=== PATIENT | female | born 1965 | race Asian ===

== ENCOUNTER → 2017-02-21 | Outpatient (CLI) | payer BC | END | disposition home or self-care (01) | LOC: C.PAPS 13:55 | PROVIDERS: ATTEND Obstetrics & Gynecology | DX: Z01.419 Encounter for gynecological examination (general) (routine) without abnormal findings (principal) ==

== ENCOUNTER → 2018-02-23 | Outpatient (CLI) | payer OTHER | END | disposition home or self-care (01) | LOC: C.PAPS 16:37 | PROVIDERS: ATTEND Obstetrics & Gynecology | DX: Z01.419 Encounter for gynecological examination (general) (routine) without abnormal findings (principal) ==

== ENCOUNTER → 2018-03-10 | Outpatient (CLI) | payer OTHER ==
--- NOTE | 2018-03-10 09:40 | DIAGNOSTIC IMAGING REPORT ---
ABDOMINAL ULTRASOUND COMPLETE HISTORY: CHOLESTEROLOSIS OF GALLBLADDER, OTHER SPECIFIED. COMPARISON: Abdominal ultrasound 08/04/2013. FINDINGS: Pancreas: The pancreas demonstrates a normal echotexture. Liver: Unremarkable. Gallbladder: No gallbladder wall thickening. No gallstones. A few gallbladder polyps are again noted with the largest measuring 5 mm. CBD: 5 mm. Kidneys: No hydronephrosis. Spleen: Normal in size measuring 8 cm in length. Aorta: Normal in caliber. IVC: Patent. IMPRESSION: 1. A few small gallbladder polyps measuring up to 5 mm. These are similar to the prior study. 2. No gallstones. Electronically signed by: Erwin Leal M.D. 03/10/2018 9:39 AM Dictated Date/Time: 03/10/2018 9:37 AM
--- NOTE | 2018-03-10 09:46 | DIAGNOSTIC IMAGING REPORT ---
THYROID ULTRASOUND HISTORY: Thyroid nodule. Follow-up. COMPARISON: Thyroid ultrasound 07/19/2013. FINDINGS: Right lobe: 5.9 x 2.0 x 1.4 cm. Slightly heterogeneous and isoechoic nodule within the interpolar region measuring 7 x 7 x 4 mm. This has increased in size by 1 mm. There is a similar-appearing 5 x 4 mm nodule in the interpolar region which is similar in size. Left lobe: 4.8 x 1.4 x 1.9 cm. There are 2 small cysts/nodules within the left thyroid lobe measuring up to 4 mm. Isthmus: 3 mm in thickness. No nodules. IMPRESSION: A few subcentimeter thyroid nodules which are not significantly changed. These do not meet sonographic criteria for biopsy. Electronically signed by: Erwin Leal M.D. 03/10/2018 9:45 AM Dictated Date/Time: 03/10/2018 9:41 AM
== END | disposition home or self-care (01) ==
LOC: C.ULTR 08:24
PROVIDERS: ATTEND Family Medicine
DX: E04.2 Nontoxic multinodular goiter (principal); K82.4 Cholesterolosis of gallbladder; R19.8 Other specified symptoms and signs involving the digestive system and abdomen

== ENCOUNTER → 2018-03-14 | Outpatient (CLI) | payer OTHER | END | disposition home or self-care (01) | LOC: C.LAB1850 10:01 | PROVIDERS: ATTEND Obstetrics & Gynecology | DX: N95.9 Unspecified menopausal and perimenopausal disorder (principal) ==

== ENCOUNTER 2019-09-13 08:18 | Observation (INO) ==
--- NOTE | 2019-09-02 15:11 | PAT Medication Instructions ---
Medication Instructions Date of Service September 02, 2019 Home Medications norethindrone-e.estradiol-iron [Mibelas 24 Fe] 1 tab PO DAILY azelastine 137 mcg (0.1 %) nasal spray aerosol 2 sprays INTRANASAL BID PRN ASK your prescriber and surgeon norethindrone-e.estradiol-iron [Mibelas 24 Fe] 1 tab PO DAILY Take morning of surgery With a small sip of water, OTHERWISE NOTHING TO EAT OR DRINK AFTER MIDNIGHT: azelastine 137 mcg (0.1 %) nasal spray aerosol 2 sprays INTRANASAL BID PRN (if needed) Other Notes If you have any questions please call us at [phone] or [phone] or [phone] or [phone]
--- NOTE | 2019-09-03 10:00 | Anesthesiology Consultation ---
Date of Service September 03, 2019 Assessment & Plan (1) Encounter for pre-operative examination: - Check test AM DOS Chart Review Chart Review: Pending: Refer to Additional Notes / Consult section (pending p reop testing (labs, EKG)) and Patient seen in Pre Admission Testing Teaching & Discussion Pre-Anesthesia Teaching/Discussion Notes: Instructed NPO after midnight before surgery,except medications with 15 cc of water. Medication instructions provided according to the PAT guidelines. History Surgery Operation Date: 09/13/19 09:50 Proposed Procedures p Laparoscopic Cholecystectomy - Ton Barkley MD, FACS Height/Weight Height: 5 ft 2 in Weight: 57.4 kg Allergies Allergy/AdvReac Type Severity Reaction Status Date / Time No Known Allergies Allergy Unknown Verified 08/31/19 12:17 Medications Home Medications Medication Instructions Recorded Confirmed Last Taken norethindrone-e.estradiol-iron 1 tab PO DAILY 06/28/19 08/31/19 06/28/19 [Mibelas 24 Fe] azelastine 137 mcg (0.1 %) nasal 2 sprays INTRANASAL BID PRN #1 ml 07/08/19 08/31/19 Unknown spray aerosol Past Medical History Medical History Gall bladder polyp PAC (premature atrial contraction) occasional palpitations Thyroid nodule under surveillance Exercise / Class Metabolic Activity II 4-5 Yardwork/Stairs/Walk up hill Past Family History Family History Family/Other Coronary heart disease Family/Other Diabetes Mother Hypertension Past Surgical History Surgical History History of colonoscopy History of esophagogastroduodenoscopy (EGD) Hx of appendectomy Past Anesthesia History No Hx of Anesthesia Complications and No Family Hx of Anesthesia Complications History of PONV No Hx of PONV and Hx of Motion Sickness (rare) Social History Smoking Status: Never smoker Do You Dip or Chew Tobacco: No Hx Alcohol Use: No Hx Substance Use: No substance use type: does not use Review of Systems Occasional palpitations/PAC's. Patient denies chest pain, shortness of breath, dyspnea on exertion, cough, wheezing. Physical Exam Vital Signs VITALS BP 117/78 P 72 TEMP 98.3 SP02 97%RA RESP 16 PHYSICAL Full neck and c-spine range of motion. Full TMJ range of motion. TMD 3 finger breaths Mallampati Score 3 Dentition: intact Lungs: clear throughout to auscultation Cardiac: regular rate and rhythm, no murmurs noted Spine: normal Carotid arteries: negative bruit Extremities: no edema Testing Electrocardiogram Date: 06/14/19 Findings: + NSR @ (63) Echocardiogram Date: 02/23/16 LVEF 65%. No RWMA. Mild TR. False tendon in the LV apex (normal variant).
[2019-09-03 13:36] LABS: Basophils # (auto) 0.09 K/uL (0-0.2); Basophils % (auto) 1.3 %; Eosinophils # (auto) 0.25 K/uL (0-0.5); Eosinophils % (auto) 3.7 %; Hematocrit (blood only) 38.6 % (37-47); Hemoglobin 12.7 g/dL (12.0-16.0); Immature Granulocytes # (auto) 0.01 K/uL (0.00-0.02); Immature Granulocytes % (auto) 0.1 %; Lymphocytes # (auto) 2.61 K/uL (1.2-3.4); Lymphocytes % (auto) 38.6 %; Mean Corpuscular Hemoglobin 31.1 pg (25-34); Mean Corpuscular Hgb Conc 32.9 g/dL (32-36); Mean Corpuscular Volume 94.4 fL (80-100); Mean Platelet Volume 9.6 fL (7.4-10.4); Monocytes # (auto) 0.43 K/uL (0.11-0.59); Monocytes % (auto) 6.4 %; Neutrophils # (auto) 3.37 K/uL (1.4-6.5); Neutrophils % (auto) 49.9 %; Platelet Count 372 K/uL (130-400); RDW Coefficient of Variation 13.7 % (11.5-14.5); RDW Standard Deviation 47.1 fL (36.4-46.3); Red Blood Count 4.09 M/uL (4.2-5.4); White Blood Count 6.76 K/uL (4.8-10.8)
[2019-09-03 13:46] LABS: BUN Creatinine Ratio 11.9 (10-20); Calcium 9.2 mg/dl (8.5-10.1); Creatinine Clr Calc Pharmacy 63.4 ml/min; Est GFR (African American) 94.6; Est GFR (Non-African American) 81.6; Potassium 3.7 mmol/L (3.5-5.1)
[~2019-09-13 08:18] MED LIST: LR 15ML/HR IV SCH; cefUROXime 1,500 MG in DEXTROSE 5% 100 ML IV SCH
[2019-09-13] MEDS ORDERED: MIDAZOLAM HCL 1 MG/ML 2ML VIAL ONE (09:16)
[2019-09-13] MEDS ORDERED: fentaNYL citrate 100 MCG/2 ML VIAL ONE ×2 (09:16→10:35)
[2019-09-13] MEDS ORDERED: HYDROmorphone INJ 2 MG/ML SYR/VIAL IV PRN (09:28)
[2019-09-13] MEDS ORDERED: ONDANSETRON INJ 2 MG/ML 2 ML VIAL IV PRN ×2 (09:28→11:04)
[2019-09-13] MEDS ORDERED: ATROPINE SULFATE 0.1 MG/ML 10ML SYR IV PRN (09:28)
[2019-09-13] MEDS ORDERED: ePHEDrine sulfate 50 MG/ML AMP IV PRN (09:28)
[2019-09-13] MEDS ORDERED: fentaNYL citrate 100 MCG/2 ML VIAL IV PRN (09:28)
[2019-09-13] MEDS ORDERED: BUPIVACAINE 0.5 % 5 MG/1 ML MPF 30ML VIAL ONE (09:55)
[2019-09-13] MEDS ORDERED: CONRAY 60% 50 ML VIAL ONE (09:55)
--- NOTE | 2019-09-13 10:03 | History & Physical Bridge Note ---
Date of Service September 13, 2019 History & Physical Bridge Note I have examined the patient, reviewed the History & Physical and in the interval since the performance of the History & Physical I have noted the following changes of clinical significance: no changes noted
[2019-09-13] MEDS ORDERED: ACETAMINOPHEN 1,000 MG/100 ML VIAL IV ONE (10:59)
[2019-09-13] MEDS ORDERED: NEOSTIGMINE METHYLSULFATE 5 MG/5 ML SYR ONE (10:59)
[2019-09-13] MEDS ORDERED: LIDOCAINE HCL 2% 2 ML VIAL/AMP(20MG/ML) INFIL ONE (10:59)
[2019-09-13] MEDS ORDERED: GLYCOPYRROLATE 0.2 MG/ML VIAL ONE (10:59)
[2019-09-13] MEDS ORDERED: ROCURONIUM BROMIDE 10 MG/ML 5 ML VIAL ONE (10:59)
[2019-09-13] MEDS ORDERED: PROPOFOL IV EMULSION 10 MG/ML 20 ML VIAL IV ONE (10:59)
[2019-09-13] MEDS ORDERED: DEXAMETHASONE SOD INJ 4 MG/ML VIAL ONE (10:59)
[2019-09-13] MEDS ORDERED: ONDANSETRON INJ 2 MG/ML 2 ML VIAL ONE (10:59)
--- NOTE | 2019-09-13 10:59 | Post Operative Brief Note ---
PG Immediate Post Op with CF Date of Surgery September 13, 2019 Pre & Post Diagnosis Operation Date: 09/13/19 09:50 Pre-Op Diagnosis: Gallbladder Polyp Post-Op Diagnosis: Gallbladder Polyp chronic cholecystitis I identified the patient and participated in the time-out.: Yes Procedure Operation Date: 09/13/19 09:50 Actual Procedures p Laparoscopic Cholecystectomy - Ton Barkley MD, FACS Surgeon Ton Barkley MD, FACS [employer] Esperanza Masterson Estimated Blood Loss 5 Findings Consistent with Post-Op Diagnosis Specimens Specimen Description: Permanent Specimen A: Gallbladder
--- NOTE | 2019-09-13 11:13 | Operative Report ---
DATE OF OPERATION: 09/14/2019 NAME OF OPERATION: Laparoscopic cholecystectomy. PREOPERATIVE DIAGNOSIS: Gallbladder polyps. POSTOPERATIVE DIAGNOSES: Gallbladder polyps, chronic cholecystitis, chronic scar tissue. STAFF SURGEON: Ton Barkley MD FUR REPAIRER: Ricardo Masterson PA-C ANESTHESIA: General. DESCRIPTION OF PROCEDURE: The patient was brought in the operating room and placed on the operating table in supine position. Pneumatic stockings, orogastric tube were placed. My assistant secretary helped with prepping, draping, removal of the gallbladder and closure of the wounds. Incision was made just above the umbilicus using 0.5% plain Marcaine to anesthetize all incisions. Pneumoperitoneum was produced with a Veress needle and then 11 mm port placed at this level and then under visualization, three 5 mm ports were placed, 1 cephalad and 2 laterally. Gallbladder was retracted. It was aspirated of bile. Dissection was carried out the ajay hepatis, identifying the common bile duct, cystic duct, common hepatic artery, cystic artery. The patient did have chronic thickening and scar tissue in the area of the ajay hepatis consistent with chronic inflammation. The cystic duct and cystic artery were clipped and transected and the gallbladder dissected away from the liver bed in the usual fashion. It was placed in an Endobag. After appropriate hemostasis and irrigation, the Endobag was removed through the umbilical site sent for routine pathology. Fascia at the umbilicus closed using interrupted 0 Vicryl suture. Skin reapproximated using subcuticular 4-0 Monocryl with Dermabond. The patient was transferred to recovery room in stable condition. I attest to the content of the Intraoperative Record and any orders documented therein. Any exception s are noted below.
--- NOTE | 2019-09-13 12:01 | Anesthesiology Progress Note ---
Date of Service September 13, 2019 Anesthesia Post Procedure Vital Signs Vital Signs: Temp Pulse Pulse Resp BP BP Pulse Ox 09/13/19 11:50 64 21 114/72 99 09/13/19 11:40 60 21 117/68 100 09/13/19 11:30 82 16 107/71 99 09/13/19 11:20 36.4 C L 96 H 16 113/84 98 09/13/19 09:06 36.9 C 86 18 132/71 97 Pain Intensity Abdomen: Pain Intensity: 4 Transfer of Care Handoff Completed per policy Notes Mental Status: alert / awake / arousable and participated in evaluation Patient Amnestic to Procedure: Yes Nausea / Vomiting: adequately controlled Pain: adequately controlled Airway Patency, RR, SpO2: stable & adequate BP & HR: stable & adequate Hydration State: stable & adequate Anesthetic Complications: no major complications apparent and Pt Satisfied with anesthetic care
[2019-09-13] MEDS ORDERED: PROMETHAZINE HCL 12.5 MG in SODIUM CHLORIDE 0.9% 50 ML IV PRN (12:52)
[2019-09-13] MEDS ORDERED: MoRPHine SULFATE 2 MG/ML CARP IV PRN ×2 (12:52)
[2019-09-13] MEDS ORDERED: ACETAMINOPHEN 325 MG TAB PO PRN (12:52)
[2019-09-13] MEDS ORDERED: HYDROCODONE/ACETAMOPHEN 5/325MG TAB PO PRN ×2 (12:52)
[2019-09-13] MEDS ORDERED: IBUPROFEN 600 MG TAB PO PRN (12:52)
[2019-09-13] MEDS ORDERED: LACTATED RINGER'S 1,000 ML IV SCH (13:30)
[2019-09-13] MEDS ORDERED: COUGH DROP (SUGAR FREE) LOZ 24 LOZ/1 BOX BUCCAL PRN (18:46)
--- NOTE | 2019-09-14 08:33 | Discharge Summary ---
PRINCIPAL DIAGNOSES: Gallbladder polyps and chronic cholecystitis. PROCEDURE: The patient underwent laparoscopic cholecystectomy. HISTORY OF PRESENT ILLNESS: The patient is a 53-year-old female who has a history of gallbladder polyps for elective cholecystectomy. She was brought into the hospital on 09/13/2019 where she underwent elective laparoscopic cholecystectomy, which showed a chronic scarring consistent with chronic cholecystitis. The gallbladder was sent for routine pathology. She did very well and has done well overnight and is felt stable for discharge home today to be followed in the surgical clinic within 1-2 weeks.
[2019-09-14] MEDS ORDERED: DOCUSATE SODIUM/SENNA 50/8.6MG TAB PO SCH (09:00)
== END 2019-09-14 10:30 | disposition home or self-care (01) ==
LOC: 3W 08:18 → ASU 08:18